=== PATIENT | male | born 1990 | race Caucasian/White ===

== ENCOUNTER 2023-07-13 10:38 | Emergency (ER) | payer OTHER, SELFPAY ==
[2023-07-13 11:04] VITALS: BP 141/82; PULSE 71; RESP 20; TEMP 36.8; O2SAT 100
--- NOTE | 2023-07-13 11:30 | ED.MALEGU ---
HPI - Male Genitourinary General Chief complaint: Urogenital-Male Stated complaint: Std Test History of Present Illness HPI Narrative: Patient presents requesting to be tested for Trichomonas. Patient denies any other exposure states he has been tested for trich in the past but has had sexual interaction with a person that has recently been diagnosed with Trichomonas. Patient denies any symptoms denies the need for any other testing. Related Data Allergies Allergy/AdvReac Type Severity Reaction Status Date / Time No Known Allergies Allergy Unverified 05/04/15 14:45 Review of Systems Review of Systems: CONSTITUTIONAL: Denies fever, chills, or sweats. EYES: Denies visual changes, redness, or discharge. ENT: Denies rhinorrhea, congestion, sore throat, or otalgia. CARDIOVASCULAR: Denies chest pain, palpitations, or edema. RESPIRATORY: Denies cough or dyspnea. GASTROINTESTINAL: Denies abdominal pain, nausea, vomiting, or diarrhea. GENITOURINARY: Denies dysuria or hematuria. SKIN: Denies rash or itching. MUSCULOSKELETAL: Denies back pain, joint pain, or myalgia. NEUROLOGIC: Denies headache, numbness, or weakness. PSYCHIATRIC: Denies anxiety or depression. PMFSH Comments At time of signature, agree with nursing past medical, surgical, social and family history. There is no relevant family history pertinent to the presenting complaint Exam Narrative: GENERAL: Well-appearing, well-nourished, and in no acute distress. HEAD: Normocephalic, atraumatic. EYES: PERRLA and EOMI. ENT: Nares clear, no rhinorrhea or epistaxis. Mucous membranes moist. NECK: Supple. CHEST: Clear to auscultation. No respiratory distress. HEART: Regular rate and rhythm. No murmur heard. Normal peripheral pulses. ABDOMEN: Soft, nontender, nondistended, normal active bowel sounds. EXTREMITIES: Normal range of motion. No edema. SKIN: Warm, dry, no rash. NEURO: No focal deficits. Alert and oriented x3. [place] Coma Scale Eye Opening: Spontaneous 4 Jy[place]i Coma Scale Motor: Obeys Commands 6 Jy[place]i Coma Scale Verbal: Oriented 5 [place] Coma Scale Total 15 Course Course Level of Care: Express Care Visit Vital Signs Vital signs: Vital Signs Temperature 36.8 C 07/13/23 11:04 Pulse Rate 71 07/13/23 11:04 Respiratory Rate 20 07/13/23 11:04 Blood Pressure 141/82 H 07/13/23 11:04 Pulse Oximetry 100 07/13/23 11:04 Oxygen Delivery Room Air 07/13/23 11:04 Temperature 36.8 C 07/13/23 11:04 Pulse Rate 71 07/13/23 11:04 Respiratory Rate 20 07/13/23 11:04 Blood Pressure 141/82 H 07/13/23 11:04 Pulse Oximetry 100 07/13/23 11:04 Oxygen Delivery Room Air 07/13/23 11:04 Please CHIDI schedule a followup visit with your personal physician for further evaluation and treatment. Including recheck and discussion of your blood pressure. If your symptoms persist, change or worsen significantly before you can contact your personal physician then please, without delay, go to the emergency department for further evaluation Patient declines urinalysis are and are urine culture at today's visit just wants to be tested for Trichomonas. Discharge Plan Discharge Clinical Impression: Encounter for assessment of STD exposure Patient Disposition: Home, Self-Care Condition: Stable Instructions: Trichomoniasis (ED) Additional Instructions: STD If you are treated with Flagyl or Metronidazole, please abstain from alcohol use during the time of treatment and at least 24-48 hours after treatment is completed Please discuss testing and treating with all recent sexual partners, and advise testing as well. Please abstain from sexual activity for 7 days after treatment and until all sex partners have completed treatment, or until negative cultures result If treated for STD?s please consider being retested 3 months after treatment regardless if partners were treated. This can best be done at the Health Department or at [facility], PCP
[2023-07-13 15:38] LABS: Trichomonas Vag PCR NOT DETECTED (NOT DETECTE)
[2023-07-13 16:02] LABS: Chlamydia trachomatis NOT DETECTED (NOT DETECTE); Neisseria gonorrhoeae PCR NOT DETECTED (NOT DETECTE)
== END 2023-07-13 11:50 | disposition home or self-care (01) ==
PROVIDERS: Emergency Provider Nurse Practitioner Family; PCP Family Medicine
DX: Z20.2 Contact with and (suspected) exposure to infections with a predominantly sexual mode of transmission (principal)
CPT/HCPCS: 87491; 87591; 87661; 99203; G0463